=== PATIENT | male | born 1985 | race Caucasian/White ===

== ENCOUNTER 2016-11-29 14:12 | Emergency (ER) | payer BC ==
[~2016-11-29] VITALS: Ht 180.3 cm; Wt 81.1 kg
[2016-11-29 14:16] VITALS: TEMP 37.2; Ht 180.3 cm; Wt 81.1 kg
[2016-11-29] MEDS ORDERED: CYCL10TA6 PO (14:37)
[2016-11-29] MEDS ORDERED: PRED20TA2 PO (15:22)
[2016-11-29] MEDS ORDERED: KETO10TA PO (15:22)
[2016-11-29 15:38] VITALS: BP 124/85; PULSE 96; O2SAT 97
--- NOTE | 2016-11-30 13:44 | EMERGENCY ROOM VISIT NOTE ---
ED Visit Note First contact with patient: 14:31 Chief Complaint: I'm having lower back pain. History of Present Illness: Mr. Sanders is a 31-year-old white male who ambulates into the ED complaining of lumbar back pain. Historically patient reports she has a history of chronic back pain for last 4- 5 years. He reports a previous MRI done out of the area showed some disc bulging with no herniations. He has been seen by pain management and has been on chronic steroids, injection and narcotics for pain control. Patient reports 2 days ago he started experiencing exacerbation of pain. His pain is located in the L4 through S1 area. He describes his pain as a sharp sensation. He rates his discomfort 8/10. His pain does wax and wane with movements of the lumbar spine. He has not identified any alleviating factors related to the pain. He has not taken any medications for pain prior to arrival at the hospital. There is radiation of his pain into his right buttocks. He denies any associated fevers, chills, sweats, skin eruptions, skin color changes, abdominal pain, nausea, vomiting, diarrhea, constipation, rectal bleeding, black/tarry stools, urinary symptoms, hematuria, genital paresthesias , bowel and bladder dysfunction, lower extremity weakness/numbness/tingling. Review of Systems: As noted above in history of present illness. 8 body systems were reviewed and found to be negative as noted above. Past Medical History: As noted above. Current Medications: Flexeril. Allergies to Medications: Tramadol. Social History: Patient is currently employed; he feels safe in his home environment; he admits to tobacco use and denies alcohol use. Physical Examination: Vital Signs: Date Time Temp Pulse Resp B/P (MAP) Pulse Ox O2 Delivery O2 Flow Rate FiO2 11/29/16 15:38 96 16 124/85 97 11/29/16 14:16 37.2 95 18 111/76 98 Room Air GENERAL: 31-year-old male in mild distress due to pain, nontoxic-appearing, afebrile and hemodynamically stable. NEUROLOGICAL: Awake, alert and oriented to person, place and time. Answering questions appropriately and following commands. Normal gait. Good hand eye coordination. SKIN: Warm, dry and pink. No soft tissue eruptions or trauma noted. HEENT: Atraumatic and normocephalic. BACK: No tenderness over the bony cervical and thoracic spine. Mild to moderate tenderness in the L4 through S1 area on the right over the bony spine. I do not appreciate any bony deformity, bony crepitus, swelling, erythema or step-offs. Decreased range of motion in all movements at the waist due to pain. Negative straight leg raise test. No tenderness or muscle spasm present. No CVA tenderness. THORAX: Lungs sounds are clear to auscultation and equal bilaterally with symmetrical chest wall. ABDOMEN: Flat, soft and nontender. Positive bowel sounds in all quadrants. No guarding, rigidity or organomegaly. EXTREMITIES: Moves all extremities well on command and with purpose. All distal neurovascular statuses are intact and equal bilaterally. 5/5 muscle strength in all movements of the hips, knees, ankle and feet. 2+ patellar and Achilles deep tendon reflexes intact and equal bilaterally. He was able to distinguish light sensations through all dermatomes of the lower extremities and feet. ED Course: Patient is assessed as noted above. Patient's medication list was reviewed. Patient was educated about today's findings and instructed on his treatment plan ; he verbalizes understanding and agreement with this plan. Clinical Impression: Acute on chronic lumbar back pain. Decision-Making: Initially my differential diagnosis I considered back strain, herniated disc, equinus syndrome, muscle spasm, kidney stone, pancreatitis and other causes. Disposition: Patient discharged home in stable condition; prior to departure he was reassessed and subjectively reported he was feeling slightly better and rated his discomfort 5/10. Plan: Patient was prescribed Toradol 10 mg every 6 hours as needed for pain and encouraged him to alternate with 650 mg of acetaminophen every 3 hours. Patient was prescribed prednisone 60 mg once a day for 5 days. Other comfort measures were discussed including the use of ice and proper lifting and moving techniques. Patient was encouraged to follow-up with Dr. Bell, orthopedic spine surgery, for specialty care and treatment. Patient was encouraged return ED for uncontrolled pain, fevers, abdominal pain, genital paresthesias, bowel and bladder dysfunction, lower extremity weakness/ numbness/tingling or any new/concerning symptoms.
== END 2016-11-29 15:40 | disposition home or self-care (01) ==
LOC: C.EDB 14:17 → C.EDD 15:40
DX: M54.5 Low back pain (principal); G89.29 Other chronic pain; F17.200 Nicotine dependence, unspecified, uncomplicated; Z79.899 Other long term (current) drug therapy